=== PATIENT | female | born 1965 | race Caucasian/White ===

== ENCOUNTER 2016-05-05 11:35 | Emergency (ER) | payer OTHER ==
[2016-05-05 13:11] VITALS: BP 136/67
--- NOTE | 2016-05-05 15:31 | UC ---
Back Pain HPI - HPI Summary HPI Summary: The patient comes in today for: 1. Lower back pain: Onset: 5 days ago. Palliative/provocative: Trying to get up from a chair makes the pain worse. Trying to put her socks on makes it worse. She has taken Flexeril (10 mg tid-- 7 doses), Aleve (440 mg bid), Indra back and body. Quality: [place]: Lower back. Severity: 4/10 with standing "doing nothing." 8/10 with movement. Time: Constant. 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 She would be sitting on a stool about 1 foot off the ground. And she was leaning forward. She was also getting up and down "a lot." Numbness: on top of the right foot. Weakness: None. Bowel/bladder incontinence: None. Fevers: None. Unexpected weight loss: None. 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 Hx Last Menstrual Period: 04/06/16 - Allergies/Home Medications Allergies/Adverse Reactions: Allergies Allergy/AdvReac Type Severity Reaction Status Date / Time No Known Allergies Allergy Verified 05/05/16 13:13 PMH/Surg Hx/FS Hx/Imm Hx Previously Healthy: No Endocrine History Of: Denies: Diabetes, Thyroid Disease, Hyperthyroidism, Hypothyroidism, Dyslipidemia Cardiovascular History Of: Denies: Cardiac Disorders, Hypertension, Pacemaker/ICD, Myocardial Infarction , Congestive Heart Failure, Atrial Fibrillation, Deep Vein Thrombosis, Bleeding Disorders Respiratory History Of: Reports: Bronchitis - Hx OF ANNUALLY, UNTIL QUIT SMOKING 1999, NONE SINCE Denies: COPD, Asthma, Pneumonia, Pulmonary Embolism GI/ History Of: Reports: Gastroesophageal Reflux Denies: Ulcer, Gastrointestinal Bleed, Gall Bladder Disease, Kidney Stones, Diverticulitis, Renal Disease, Urosepsis Neurological History Of: Denies: TIA, CVA, Dementia, Seizures, Migraine Psychological History Of: Reports: Anxiety, Depression - She denies. Denies: Bipolar Disorder, Schizophrenia, Post Traumatic Stress Disorder Cancer History Of: Denies: Lung Cancer, Colorectal Cancer, Breast Cancer, Prostate Cancer, Cervical Cancer Other History Of: Negative For: HIV, Hepatitis B, Hepatitis C, Anticoagulant Therapy - Surgical History Surgical History: Yes Surgery Procedure, Year, and Place: 08/2011 LEFT LEG VEIN [facility]. 1981 FRACTURED LEFT WRIST [facility]. 1993 FRACTURED NOSE [facility]. 1995 FRACTURE LEFT ANKLE [facility] - Family History Known Family History: Positive: Hypertension Negative: Cardiac Disease - Social History Occupation: Employed Full-time Alcohol Use: Occasionally Substance Use Type: None Smoking Status (MU): Never Smoked Tobacco Review of Systems Constitutional: Negative Skin: Negative Eyes: Negative ENT: Negative Respiratory: Negative Cardiovascular: Negative Gastrointestinal: Negative Genitourinary: Negative Musculoskeletal: Arthralgia Neurological: Numbness - She will have numbness of her right middle and ring finger. This comes and goes. Not present now. Nothing makes the numbness better or worse. All Other Systems Reviewed And Are Negative: Yes Physical Exam Triage Information Reviewed: Yes Appearance: Well-Appearing, No Pain Distress, Well-Nourished Vital Signs: Initial Vital Signs Temp 97.8 F 05/05/16 13:05 Pulse 88 05/05/16 13:05 Resp 20 05/05/16 13:05 BP 136/67 05/05/16 13:05 Pulse Ox 98 05/05/16 13:05 Vital Signs Reviewed: Yes Eyes: Positive: Conjunctiva Clear. Negative: Discharge ENT: Positive: Hearing grossly normal. Negative: Pharyngeal erythema, Nasal congestion, Nasal drainage, TM bulging, TM dull, TM red, Tonsillar swelling, Tonsillar exudate Neck: Positive: Supple, Nontender, No Lymphadenopathy. Negative: Nuchal Rigidity Respiratory: Positive: Chest non-tender, Lungs clear, No respiratory distress, No accessory muscle use. Negative: Crackles, Wheezing Cardiovascular: Positive: RRR, No Murmur Abdomen Description: Positive: Nontender, No Organomegaly, Soft, Distended, Guarding Musculoskeletal: Positive: No Edema, Other: - Back: She has some guarded movement with getting out of her chair and on and off the examination table. She has no marked tenderness to palpation of her lower back paraspinous musculature of her lumbar spine. Extending the knee bilaterally made the lower back pain worse. DTR Achilles: 1+/2 x 2 and Patellar DTR: 2+/2 x 2. Neurological: Positive: Alert, Muscle Tone Normal Psychological: Positive: Normal Response To Family, Age Appropriate Behavior, Consolable Skin: Negative: rashes, breakdown Diagnostics - Radiology No standard instances Xray Interpretation: Positive (See Comments) - IMPRESSION: MILD DEGENERATIVE DISC DISEASE AND OSTEOARTHRITIS Radiology Interpretation Completed By: Radiologist Back Pain Course/Dx - Course Course Of Treatment: Patient was difficult to treat as she wanted immediate relief of her pain, but she states she is unable to tolerate NSAIDs. She said that the Flexeril did not help. She is agreeable to get an X-ray, but for a while I was discussing her diagnostic and treatment options, she was very slow to agree to treatment. Initially, she declined the steroid treatment and switching her muscle relaxant. But eventually, she agreed. The patient was told of the lumbar spine x-ray showing degenerative disease. - Differential Dx/Diagnosis Differential Diagnosis/HQI/PQRI: Arthritis, Herniated Disc, Strain, Sprain Provider Diagnoses: Lower back pain Discharge - Discharge Plan Condition: Stable Disposition: HOME Patient Education Materials: Low Back Strain (ED) Additional Instructions: If your primary care provider does not accept workmen's compensation payment, please contact the physician referral phone line for a primary care provider who does. Please contact the physical therapy department listed on the referral. If you get worse, between now and the time you see a primary care provider who accepts workmen's compensation, you can come back to see us. Stop the Flexeril and finish the steroid (Prednisone) and take as directed the baclofen.
[2016-05-05] MEDS ORDERED: predniSONE TAB* 20 MG PO ONE (15:53)
--- NOTE | 2016-05-05 16:22 | RAD ---
HISTORY: Lower back pain COMPARISONS: December 15, 2005 VIEWS: 5 , Frontal, lateral, coned-down lateral sacral, and bilateral oblique views of the lumbar spine. FINDINGS: ALIGNMENT: The alignment is normal. VERTEBRAL BODIES: The vertebral body heights are normal. The interpedicular distances are normal. JOINTS: There is facet osteoarthritis at L4-L5 and L5-S1 INTERVERTEBRAL DISCS: There is mild diffuse loss of intervertebral disc height. SOFT TISSUE: Unremarkable. OTHER: The pelvis is unremarkable. The lung bases are clear. IMPRESSION: MILD DEGENERATIVE DISC DISEASE AND OSTEOARTHRITIS
== END 2016-05-05 16:51 | disposition home or self-care (01) ==
LOC: UCEAST 11:35
DX: M54.5 Low back pain (principal)
CPT/HCPCS: 72110; 99212; G0463; J7512

== ENCOUNTER 2016-12-31 07:12 | Observation (INO) | payer BC ==
[~2016-12-31 07:12] MED LIST: Acetaminophen TAB* 325 MG ONE; Acetaminophen TAB* 325 MG PO ONE; Buffered Lidocaine 0.9% SYRIN* 5 ML/SYR SYRINGE INTRADERM ONE; Buffered Lidocaine 0.9% SYRIN* 5 ML/SYR SYRINGE ONE; Dexamethasone IV* 4 MG/ML 1 ML (4 MG) IV SLOW PU ONE; Dexamethasone IV* 4 MG/ML 1 ML (4 MG) ONE; ceFAZolin 2 GM PREMIX (*) 50 ML IVPB ONE
[2016-12-31] MEDS ORDERED: Midazolam* 1 MG/ML 2 ML VIAL (2 MG) ONE (08:05)
[2016-12-31] MEDS ORDERED: Rocuronium* 10 MG/ML VIAL ONE (08:05)
[2016-12-31] MEDS ORDERED: fentaNYL* 50 MCG/ML 2 ML VIAL (100 MCG VIAL) ONE ×3 (08:05→11:57)
[2016-12-31] MEDS ORDERED: Bupivacaine 0.25% SDV* 30 ML ONE (08:31)
[2016-12-31] MEDS ORDERED: Phenylephrine IV* 40 MCG/ML 10 ML SYRINGE ONE (08:52)
[2016-12-31] MEDS ORDERED: PROCHLORPERAZINE INJ 5 MG/ML 2 ML VIAL IV PRN (09:08)
[2016-12-31] MEDS ORDERED: Ibuprofen TAB* 600 MG PO PRN (09:08)
[2016-12-31] MEDS ORDERED: Phenylephrine INJ* 50 MG in NS 0.9% 250 ML* 245 ML IV PRN (09:08)
[2016-12-31] MEDS ORDERED: oxyCODONE TAB* 5 MG TAB PO PRN (09:08)
[2016-12-31] MEDS ORDERED: Levalbuterol 0.63MG/3ML NEB* UNIT OF USE INH PRN (09:08)
[2016-12-31] MEDS ORDERED: fentaNYL* 50 MCG/ML 2 ML VIAL (100 MCG VIAL) IV PRN (09:08)
[2016-12-31] MEDS ORDERED: HYDROmorphone INJ* 1 MG/ML CARPUJECT SYRINGE IV PRN (09:08)
[2016-12-31] MEDS ORDERED: Scopolamine 1.5 mg* PATCH TRANSDERM PRN (09:08)
[2016-12-31] MEDS ORDERED: diPHENhydraMINE IV* 50 MG/ML 1 ml VIAL (BENADRYL) IV PRN (09:08)
[2016-12-31] MEDS ORDERED: Glycopyrrolate IV* 0.2 MG/ML 1 ML VIAL ONE (09:35)
[2016-12-31] MEDS ORDERED: Cisatracurium* 2 MG/ML MDV 5 ML ONE (09:44)
[2016-12-31] MEDS ORDERED: EPHEDrine (Pressors)* 50 MG/ML VIAL ONE (10:53)
[2016-12-31] MEDS ORDERED: Sterile Water for Inj* 10 ML ONE (10:53)
[2016-12-31] MEDS ORDERED: Ondansetron INJ* 2 MG/ML VIAL ONE (10:54)
[2016-12-31] MEDS ORDERED: Ketorolac INJ* 30 MG/ML 1 ML VIAL ONE (10:54)
[2016-12-31] MEDS ORDERED: Propofol* 10 MG/ML 20 ML BTL IV PUSH ONE (11:15)
[2016-12-31] MEDS ORDERED: Lidocaine 2% PF * 5 ML VIAL ONE (11:15)
[2016-12-31] MEDS ORDERED: Atropine 1MG/ML INJ* 1 ML VIAL ONE (11:16)
[2016-12-31] MEDS ORDERED: Ondansetron INJ* 2 MG/ML VIAL IV PRN (13:34)
[2016-12-31] MEDS ORDERED: oxyCODONE/Acetamin 5/325 MG* TAB PO PRN (13:35)
[2016-12-31] MEDS ORDERED: HYDROmorphone INJ* 2 MG/ML CARPUJECT SYRINGE IV PRN (13:35)
[2016-12-31] MEDS ORDERED: Naproxen TAB* 250 MG PO PRN (13:36)
[2016-12-31] MEDS: Omeprazole CAP* 20 MG PO SCH (14:28)
--- NOTE | 2016-12-31 22:32 | OP ---
OPERATIVE REPORT: DATE OF OPERATION: 12/31/16 DATE OF : 65 SURGEON: Carlos Solis MD. CHIP FRIER: Rosi Bradford MD. PRE-OP DIAGNOSIS: Menorrhagia, fibroid uterus. POST-OP DIAGNOSIS: Menorrhagia, fibroid uterus plus adenomyosis. OPERATIVE PROCEDURE: Laparoscopic supracervical hysterectomy and bilateral salpingectomy. ESTIMATED BLOOD LOSS: 150 cc. COMPLICATIONS: None. FINDINGS: This is a 51-year-old with status post ablation who began to have breakthrough bleeding. Biopsy was negative and she wished to proceed with definitive hysterectomy. At the time of hysterectomy, the uterus was approximately 16-week size, both ovaries appeared normal. Tubes had been ligated. Uterus was quite bulky, hard to assess one single fibroid, it may have been adenomyosis. Liver surface was smooth. DESCRIPTION OF PROCEDURE: The patient identified, procedure identified as a laparoscopic supracervical hysterectomy. The patient was taken to the operating room, prepped and draped in the usual fashion, in the dorsal lithotomy position under general anesthesia. A single-tooth tenaculum was placed at the anterior lip of the cervix and a clear view uterine manipulator was placed without difficulty. A small infraumbilical incision was made and carried down through fat fascia and peritoneum. This was made approximately 4 cm in size. The GelPOINT was placed starting with the Zhen retractor and the rest of the GelPOINT was placed and the abdomen was insufflated at 15 mmHg. At this point, the LigaSure was used to grasp the round ligament on the left. The patient had some bradycardia at this point and the procedure was stopped. Anesthesiologist gave medications that improved this and we were able to proceed with the surgery. The left round ligament using the LigaSure was coagulated and divided. The ovarian ligament was then also ligated and divided. The broad ligament was opened. A bladder flap was created via sharp and blunt dissection. The left fallopian tube was grasped with the LigaSure and ligated and then excised and brought out through the incision. The same procedure was carried out on the right. The uterine vessels were ligated bilaterally using the LigaSure. Some bleeding was encountered as we created the bladder flap on the right side and this was ligated using LigaSure. Bladder flap was further created and the uterine vessel on the right side was ligated. Backbleeding was also ligated using the LigaSure. The right uterine vein was also ligated. At this point, the uterus appeared to florencio well, copious irrigation was utilized and suctioned out to clear out and make good visualization. The Supra loop was placed over the uterine body and around the cervix, all bowel and the Supra loop was visualized throughout the circumference in order to make sure no bowel loops or extra tissue was obtained within it. Traction was placed on it and the clear view was removed. 110 of pure cut was used to excise the uterus from the cervical stump. The uterine vessels were visualized and they were well ligated. Then a catch bag was placed though the Zhen retractor, uterus was placed within this. The abdomen was deflated and the uterus was trapped within the catch bag. Using the manual morcellation, the uterus within the bag was brought up into the abdominal incision, a guard was placed using the scalpel and traction. The uterus was morcellated and brought out through the incision. At the end of the procedure, the bag was removed. The GelPOINT was placed back on the abdominal zhen and the pedicles were inspected, all were found to be hemostatic. Copious irrigation was utilized and suctioned out. The endocervix was cauterized using unipolar cautery at 30. Good hemostasis again verified, all instruments removed from the abdomen. The abdomen was deflated of CO2. The fascia was then closed using 0 Polysorb in a running fashion. Hemostasis in the subcutaneous tissues and the skin was closed with 3-0 Vicryl in a subcuticular fashion. A bandage was placed, the sponge stick removed from the vagina and the patient returned to the recovery room in stable condition. All sponge and instrument counts were correct. [id number]/[facility] #: [id number] [facility]OSPITALShania
[2017-01-01 07:57] VITALS: BP 121/64
[2017-01-01] MEDS: Omeprazole CAP* 20 MG PO SCH (08:29)
[2017-01-01] MEDS ORDERED: Ferrous Gluconate TAB* 324 MG TAB PO SCH (09:00)
[2017-01-01] MEDS ORDERED: Lactobacillus Acidophilu (GG)* 1 CAP CAP PO SCH (09:00)
[2017-01-01] MEDS ORDERED: AMBEREN PO SCH (09:00)
[2017-01-03] MEDS ORDERED: Scopolomine PATCH Remove* 1 NOTE MISC PATCH OFF ONE (09:09)
== END 2017-01-01 11:19 | disposition home or self-care (01) ==
LOC: OR 07:12 → SSU 12:58
PROVIDERS: ADMIT Obstetrics & Gynecology; ATTEND Obstetrics & Gynecology
PROC: 0UT74ZZ Resection of Bilateral Fallopian Tubes, Percutaneous Endoscopic Approach (ICD-10-PCS; 2016-12-31)
PROC: 0UT94ZL Resection of Uterus, Supracervical, Percutaneous Endoscopic Approach (ICD-10-PCS; principal; 2016-12-31 08:45)
DX: N92.0 Excessive and frequent menstruation with regular cycle (principal); D25.9 Leiomyoma of uterus, unspecified; N80.0 Endometriosis of uterus
CPT/HCPCS: 88307; 96374; A9270-GY; G0378; J0461; J0690; J1100; J1885; J2250; J2405; J2704; J3010

== ENCOUNTER 2018-06-23 08:00 | Emergency (ER) | payer BC ==
--- OUTSIDE RECORDS SUMMARY | 2018-06-23 08:04 | XMS REPORT | Continuity of Care Document ---
:1965 External Reference #:[id number] Author Name Dinorah Zhu Care Team Providers Name Role Phone Jatin Deshpande III, MD Primary Care Physician Unavailable Payers Date Identification Numbers Payment Provider Subscriber Policy Number: [id number] [employer] Muna Spencer PayID: [id number] [address] [address] [place] [address] Onset: 2016 Policy Number: [id number] [facility] Insurance Muna Gamble PayID: [id number] [address] [address] [place] [address] Advance Directives Description No Information Available Problems Date Description Provider Status Onset: 05/25/2016 Backache Abrahan Fox M.D. Active Onset: 05/25/2016 Gastroesophageal reflux disease Abrahan Fox M.D. Active Family History Date Family Member(s) Observation Comments Father Hypertension Father Diabetes Type II Father Stroke Mother Cardiomyopathy Mother Diabetes Type II Social History Type Date Description Comments Sex Unknown Marital Status Occupation [employer] administrator Tobacco Use Start: Unknown Former Cigarette Smoker Quit 2002 - smoked 14 End: Unknown yrs 1ppd Smoking Status Reviewed: 06/13/18 Former Cigarette Smoker Quit 2003 - smoked 14 yrs 1ppd ETOH Use Occasionally consumes 1 glass/night wine Tobacco Use Start: Unknown Patient is a former End: Unknown smoker Exercise Exercises regularly elliptical 30 min Type/Frequency 5-6x/week, walks Allergies, Adverse Reactions, Alerts Description No Known Drug Allergies Medications Medication Date Status Form Strength Qnty SIG Indications Ordering Provider Famotidine Active Tablets 40mg 30tabs take 1 K21.9 Jatin Lambert tablet by cheikh Deshpande M.D. once daily Iron 02/28/2 Active Tablets 28mg 1 tab Abrahan 017 couple Hilliard, times M.D. weekly Amoxicillin Hx Capsules 500mg 30caps 1 three J01.00 Jatin Elaine 018 - times a Charlee, day for M.D. 019 10 days Famotidine Hx Tablets 20mg 30tabs take one K21.9 Jatin ENico 018 - tablet by Charlee, mouth M.D. 018 daily Famotidine Hx Tablets 40mg 30tabs Take One K21.9 Jatin ENico 018 - Tablet By Charlee, Mouth M.D. 018 Once Daily Lansoprazole Hx Capsules DR 30mg 30caps 1 cap Jatin Rodríguez - daily Charlee, M.DNico 019 5 HTP 0000/0 Hx bid Unknown 000 - 018 Immunizations CPT Code Status Date Vaccine Lot # [id number] Given 08/25/2016 Tdap - Tetanus/Diptheria/Acellular Pertussis [id number] Vital Signs Date Vital Result Comment 06/13/2018 9:22am Height 63.5 inches 5'3.50" Weight 180.00 lb Heart Rate 57 /min BP Systolic Sitting 124 mmHg BP Diastolic Sitting 84 mmHg O2 % BldC Oximetry 97 % BMI (Body Mass Index) 31.4 kg/m2 03/01/2018 3:53pm Height 63.5 inches 5'3.50" Weight 184.00 lb Heart Rate 64 /min BP Systolic Sitting 120 mmHg BP Diastolic Sitting 82 mmHg Body Temperature 99.1 F O2 % BldC Oximetry 98 % BMI (Body Mass Index) 32.1 kg/m2 04/05/2017 9:26am Height 63.5 inches 5'3.50" Weight 183.00 lb Heart Rate 68 /min BP Systolic Sitting 110 mmHg BP Diastolic Sitting 78 mmHg O2 % BldC Oximetry 94 % BMI (Body Mass Index) 31.9 kg/m2 08/25/2016 1:02pm Weight 174.00 lb Heart Rate 66 /min BP Systolic Sitting 122 mmHg BP Diastolic Sitting 80 mmHg Respiratory Rate 15 /min Body Temperature 98.0 F O2 % BldC Oximetry 98 % 05/25/2016 10:02am Height 63.50 inches 5'3.50" Weight 178.00 lb Heart Rate 66 /min BP Systolic 120 mmHg BP Diastolic 76 mmHg Body Temperature 98.4 F O2 % BldC Oximetry 97 % BMI (Body Mass Index) 31.0 kg/m2 Results Test Date Facility Test Result H/L Range Note CBC Auto Diff 03/09/2018 [facility] White Blood 5.4 10^3/uL N 3.5-10.[address] [place] [address] [phone] Red Blood Count 4.79 10^6/uL N 4.00-5.40 Hemoglobin 14.5 g/dL N 12.0-16.0 Hematocrit 43 % N 35-47 Mean Corpuscular Volume 89 fL N 80-97 Mean Corpuscular Hemoglobin 30 pg N 27-31 Mean Corpuscular HGB Conc 34 g/dL N 31-36 Red Cell Distribution Width 14 % N 10.5-15 Platelet Count 150 10^3/uL N 150-450 Mean Platelet Volume 10.0 fL N 7.4-10.4 Abs Neutrophils 3.0 10^3/uL N 1.5-7.7 Abs Lymphocytes 1.6 10^3/uL N 1.0-4.8 Abs Monocytes 0.4 10^3/uL N 0-0.8 Abs Eosinophils 0.3 10^3/uL N 0-0.6 Abs Basophils 0 10^3/uL N 0-0.2 Abs Nucleated RBC 0 10^3/uL Granulocyte % 56.4 % Lymphocyte % 29.2 % Monocyte % 7.3 % Eosinophil % 6.3 % Basophil % 0.8 % Nucleated Red Blood Cells % 0.1 Iron & Iron Binding 03/09/2018 [facility] Iron 56 g/dL N 50- 212 [address] [place] [address] [phone] Unsaturated Iron Binding < 356 g/dL Total Iron Binding Capacity 371 g/dL N 250-450 Transferrin 265 mg/dL N 203-362 % Iron Saturation 15 % N 15-55 Laboratory test 03/09/2018 [facility] Ferritin 61.4 ng/mL N 11 -307 1 finding [address] [place] [address] [phone] Basic Metabolic 03/09/2018 [facility] Sodium 141 mmol/L N 135- 145 Panel [address] [place] [address] [phone] Potassium 4.4 mmol/L N 3.5-5.0 Chloride 107 mmol/L N 101-111 Co2 Carbon Dioxide 28 mmol/L N 22-32 Anion Gap 6 mmol/L N 2-11 Glucose 117 mg/dL High 70-100 Blood Urea Nitrogen 19 mg/dL N 6-24 Creatinine 0.77 mg/dL N 0.51-0.95 BUN/Creatinine Ratio 24.7 High 8-20 Calcium 9.2 mg/dL N 8.6-10.3 Egfr Non- 78.4 >60 Egfr 94.9 >60 2 CBC Auto Diff 10/06/2016 [facility] White Blood 4.5 10^3/uL N 3.5-10.[address] [place] [address] [phone] Red Blood Count 4.59 10^6/uL N 4.0-5.4 Hemoglobin 13.1 g/dL N 12.0-16.0 Hematocrit 40 % N 35-47 Mean Corpuscular Volume 88 fL N 80-97 Mean Corpuscular Hemoglobin 28 pg N 27-31 Mean Corpuscular HGB Conc 32 g/dL N 31-36 Red Cell Distribution Width 15 % N 10.5-15 Platelet Count 119 10^3/uL Low 150-450 Mean Platelet Volume 11 um3 High 7.4-10.4 Abs Neutrophils 2.5 10^3/uL N 1.5-7.7 Abs Lymphocytes 1.4 10^3/uL N 1.0-4.8 Abs Monocytes 0.4 10^3/uL N 0-0.8 Abs Eosinophils 0.1 10^3/uL N 0-0.6 Abs Basophils 0 10^3/uL N 0-0.2 Abs Nucleated RBC 0 10^3/uL N Granulocyte % 55.7 % N 38-83 Lymphocyte % 32.2 % N 25-47 Monocyte % 9.1 % High 1-9 Eosinophil % 2.2 % N 0-6 Basophil % 0.8 % N 0-2 Nucleated Red Blood Cells % 0.1 N Laboratory test 10/06/2016 [facility] Ferritin < 10.0 ng/mL Low 11-307 [address] [place] [address] [phone] Iron & Iron 10/06/2016 [facility] Iron 42 g/dL Low 50-212 Binding Capacity [address] [place] [address] [phone] Unsaturated Iron Binding 414 g/dL N Total Iron Binding Capacity 456 g/dL High 250-450 % Iron Saturation 9 % Low 15-55 Basic Metabolic Panel 10/06/2016 [facility] Sodium 140 mmol/L N 133-145 [address] [place] [address] [phone] Potassium 4.9 mmol/L N 3.5-5.0 Chloride 106 mmol/L N 101-111 Co2 Carbon Dioxide 29 mmol/L N 22-32 Anion Gap 5 mmol/L N 2-11 Glucose 116 mg/dL High 70-100 Blood Urea Nitrogen 13 mg/dL N 6-24 Creatinine 0.78 mg/dL N 0.51-0.95 BUN/Creatinine Ratio 16.7 N 8-20 Calcium 9.2 mg/dL N 8.6-10.3 Egfr Non- 77.9 N >60 Egfr 100.1 N >60 4 Laboratory test 10/06/2016 [facility] Magnesium 2.3 mg/dL N 1.9-2.7 5 finding [address] [place] [address] [phone] Vitamin B12 And 10/06/2016 [facility] Vitamin B12 590 pg/mL N 180-914 6 Folate Serum [address] [place] [address] [phone] Folic Acid (Folate) 8.76 ng/mL N >3.99 7 Laboratory 10/06/2016 [facility] Hepatitis C Nonreactive N Nonreactive 8 test finding [address] [facility] [place] [address] [phone] Lipid Profile 10/06/2016 [facility] Triglycerides 96 mg/dL N 9 (Trig/Chol/HD [address] [facility] [place]) [place] [address] [phone] Cholesterol 165 mg/dL N 10 HDL Cholesterol 47.6 mg/dL N 11 LDL Cholesterol 98 mg/dL N 12 Laboratory test finding 08/25/2016 [facility] Hemoglobin A1c 5.9 5-7 1 FASTING 2 Because ethnic data is not always readily available, this report includes an eGFR for both -Americans and non- Americans. The National Kidney Disease Education Program (NKDEP) does not endorse the use of the MDRD equation for patients that are not between the ages of 18 and 70, are , have extremes of body size, muscle mass, or nutritional status, or are non- or non-. According to the National Kidney Foundation, irrespective of diagnosis, the stage of the disease is based on the level of kidney function: Stage Description GFR(mL/min/1.73 m(2)) 1 Kidney damage with normal or decreased GFR 90 2 Kidney damage with mild decrease in GFR 60-89 3 Moderate decrease in GFR 30-59 4 Severe decrease in GFR 15-29 5 Kidney failure <15 (or dialysis) 3 FASTING 4 Because ethnic data is not always readily available, this report includes an eGFR for both -Americans and non- Americans. The National Kidney Disease Education Program (NKDEP) does not endorse the use of the MDRD equation for patients that are not between the ages of 18 and 70, are , have extremes of body size, muscle mass, or nutritional status, or are non- or non-. According to the National Kidney Foundation, irrespective of diagnosis, the stage of the disease is based on the level of kidney function: Stage Description GFR(mL/min/1.73 m(2)) 1 Kidney damage with normal or decreased GFR 90 2 Kidney damage with mild decrease in GFR 60-89 3 Moderate decrease in GFR 30-59 4 Severe decrease in GFR 15-29 5 Kidney failure <15 (or dialysis) 5 FASTING 6 Normal Range 180 to 914 Indeterminate Range 145 to 180 Deficient Range <145 7 FASTING 8 FASTING 9 Desirable <150 Borderline high 150-199 High 200-499 Very High >500 10 Desirable <200 Borderline high 200-239 High >239 11 Low <40 Desirable: 40-60 High: >60 12 Desirable: <100 mg/dL Near Optimal: 100-129 mg/dL Borderline High: 130-159 mg/dL High: 160-189 mg/dL Very High: >189 mg/dL Procedures Date Code Description Status 10/06/2016 [id number] Mammogram Completed Encounters Type Date Location Provider Dx Diagnosis Office Visit 03/01/2018 [facility] Olsen01.00 Acute maxillary 3:40p Sarah Deshpande M.D. sinusitis, [place] unspecified D64.9 Anemia, unspecified K21.9 Gastro-esophageal reflux disease without esophagitis R73.01 Impaired fasting glucose Office Visit 04/05/2017 9:20a [facility] Internal Jatin Elaine Z00.00 Encntr for Sarah Deshpande M.D. general adult [place] medical exam w/o abnormal findings K21.9 Gastro-esophageal reflux disease without esophagitis D64.9 Anemia, unspecified R73.01 Impaired fasting glucose Office Visit 08/25/2016 [facility] Internal Jatin Elaine K21.9 Gastro-esophageal 1:00p Sarah Deshpande M.D. reflux disease without [place] esophagitis D64.9 Anemia, unspecified R73.01 Impaired fasting glucose Z11.59 Encounter for screening for other viral diseases Z13.220 Encounter for screening for lipoid disorders Z23 Encounter for immunization Office Visit 05/25/2016 10:00a [facility] Internal Abrahan Fox, M54.5 Low back pain Sarah Rose Plan of Treatment 06/13/2018 - Jatin Deshpande M.D.Z00.00 Encounter for general adult medical examination without abnoComments:Discussed the new shingles vaccine; pt declines flu shots. (+) dental, eye, [employer] exams. Colon exam due again in 2020. Lipids good in 2017Follow up:yearly or prnK21.9 Gastro-esophageal reflux disease without esophagitisComments:(+) breakthrough sx on 20 mg Famotidine dose , but ok at 40 mg. Continue Rx, weight loss [id number] Impaired fasting glucoseComments:117 with recent labs. Diet Rx onlyD64.9 Anemia, unspecifiedComments:Hgb normal following her hysterectomy.M72.2 Plantar fascial fibromatosisComments:(+) hx podiatry eval for plantar fasciitis sx on the R in the past, now with similar sx on the L. Podiatry recheck advised as needed
--- NOTE | 2018-06-23 09:54 | UC ---
Hand/Wrist HPI - HPI Summary HPI Summary: SEVERAL WEEKS OF SWELLING TO RIGHT THUMB. INTERMITTENT NUMB SENSATION. DENIES ANY TRAUMA. NO FEVER. MINIMAL DISCOMFORT. RIGHT HAND DOMINANT. - History Of Current Complaint Chief Complaint: UCSkin Stated Complaint: THUMB COMPLAINT Time Seen by Provider: 06/23/18 09:02 Hx Obtained From: Patient Hx Last Menstrual Period: 04/06/16 Onset/Duration: Gradual Onset, Lasting Weeks, Still Present Severity Initially: Mild Severity Currently: Mild Pain Intensity: 0 Pain Scale Used: 0-10 Numeric Character Of Pain: Dull Aggravating Factor(s): Other - NOTHING Alleviating Factor(s): Rest Associated Signs And Symptoms: Positive: Swelling. Negative: Redness Related History: Dominant Hand Right - Allergies/Home Medications Allergies/Adverse Reactions: Allergies Allergy/AdvReac Type Severity Reaction Status Date / Time No Known Allergies Allergy Verified 06/23/18 08:08 Home Medications: Home Medications Famotidine TAB* [Pepcid 20 MG TAB*] 40 mg PO DAILY 06/23/18 [History Confirmed 06/23/18] PMH/Surg Hx/FS Hx/Imm Hx GI/ History: Gastroesophageal Reflux Other History Of: Negative For: HIV, Hepatitis B, Hepatitis C, Anticoagulant Therapy - Surgical History Surgical History: Yes Surgery Procedure, Year, and Place: 08/2011 LEFT LEG VEIN STRIPPING. 08/2015 RIGHT LEG VEIN STIPPING [facility] [place]. 1981 FRACTURED LEFT WRIST CASTED [place]. 1993 FRACTURED NOSE [facility]. 1995 FRACTURE LEFT ANKLE [facility]. UTERINE ABLATION [facility] [place]. TUBAL LIGATION 08/21/1993 [facility]. hysterectomy 2017 - Family History Known Family History: Positive: Hypertension Negative: Cardiac Disease - Social History Alcohol Use: Weekly Alcohol Amount: WINE DAILY Substance Use Type: None Smoking Status (MU): Former Smoker When Did the Patient Quit Smoking/Using Tobacco: 1999 Review of Systems All Other Systems Reviewed And Are Negative: Yes Constitutional: Positive: Negative Skin: Positive: Negative Respiratory: Positive: Negative Cardiovascular: Positive: Negative Gastrointestinal: Positive: Negative Musculoskeletal: Positive: Arthralgia, Edema Physical Exam Triage Information Reviewed: Yes Appearance: Well-Appearing, No Pain Distress, Well-Nourished Vital Signs: Initial Vital Signs Temp 98 F 06/23/18 08:10 Pulse 58 06/23/18 08:10 Resp 16 06/23/18 08:10 BP 121/66 06/23/18 08:10 Pulse Ox 99 06/23/18 08:10 Vital Signs Reviewed: Yes Eyes: Positive: Conjunctiva Clear ENT: Positive: Hearing grossly normal Neck: Positive: Supple Respiratory: Positive: No respiratory distress, No accessory muscle use Cardiovascular: Positive: Pulses Normal Abdomen Description: Positive: Soft Musculoskeletal: Positive: ROM Intact, Edema @ - RIGHT THUMB WITH NONTENDER COMPRESSIBLE CYSTLIKE STRUCTURE OVERLYING IP JOINT, Other: - RIGHT THUMB NOT TENDER Neurological: Positive: Alert Psychological: Positive: Age Appropriate Behavior Skin: Negative: Rashes Diagnostics - Radiology RIGHT THUMB XRAY Radiology Interpretation Completed By: Radiologist Summary of Radiographic Findings: MILD TO MODERATE OSTEOARTHRITIC CHANGE. Hand/Wrist Course/Dx - Differential Dx/Diagnosis Provider Diagnosis: Digital mucous cyst of finger of right hand Discharge - Sign-Out/Discharge Documenting (check all that apply): Patient Departure All imaging exams completed and their final reports reviewed: Yes - Discharge Plan Condition: Stable Disposition: HOME Patient Education Materials: Osteoarthritis (ED), Ganglion Cysts (ED) Referrals: Jatin Deshpande MD [Primary Care Provider] - Milka Mitchell MD [Medical Doctor] - If Needed Additional Instructions: XRAYS OF YOUR RIGHT THUMB SHOW MILD TO MODERATE OSTEOARTHRITIC CHANGE. A digital mucous (or mucinous) cyst is a ganglion cyst that forms over the dorsal side of the finger joints. They occur most commonly in the fifth to seventh decades of life and are usually associated with an underlying diagnosis of osteoarthritis. A ganglion cyst is a fluid-filled swelling overlying a joint or tendon sheath. Ganglion cysts are thought to arise from a herniation of dense connective tissue from tendon sheaths, ligaments, joint capsules, bursae, and menisci. They contain a mucinous, gelatinous fluid. The most common location for ganglion cysts is the back side of the wrist (70 percent). The second most common location for ganglion cysts in the hand is the front side of the wrist (20 percent). Ganglions can also arise from the flexor tendon sheaths of the fingers. CALL ORTHO IF YOU WISH TO HAVE FURTHER EVALUATION OR IF IT STARTS CAUSING PAIN. - Billing Disposition and Condition Condition: STABLE Disposition: Home
[2018-06-23 11:36] VITALS: BP 133/79
== END 2018-06-23 11:36 | disposition home or self-care (01) ==
LOC: UCEAST 08:00
DX: M67.441 Ganglion, right hand (principal); M19.041 Primary osteoarthritis, right hand; K21.9 Gastro-esophageal reflux disease without esophagitis; Z87.891 Personal history of nicotine dependence
CPT/HCPCS: 99211; G0463